=== PATIENT | female | born 1955 | race Caucasian/White ===

== ENCOUNTER 2019-11-19 08:50 | Inpatient (IN) | payer MEDICARE, MEDICAID ==
--- NOTE | 2019-11-18 16:15 | NUR ---
PT WAS A PHONE PREOP. COVID SCREENING QUESTIONS WERE ALL NEGATIVE. WILL PROCEED WITHOUT RAPID SWAB PER HEALTH CLAIMS EXAMINER MARINA SESAY.
[~2019-11-19] VITALS: Ht 160 cm; Wt 63.5 kg
[2019-11-19] VITALS (19 sets, daily range): BP systolic 123–160; BP diastolic 48–95
[~2019-11-19 08:50] MED LIST: AMIT25TA9 PO; LOSA50TA64 PO; SERT50TA10 PO; famotidine 20mg tablet PO ONE; ringers solution, lacted 1,000 ML IV SCH
[2019-11-19] MEDS ORDERED: CLINDAMYCIN/D5W 900mg/50ml 50 ML IV ONE (09:45)
[2019-11-19] MEDS ORDERED: phenylephrine inj 50 MG in normal saline 250ml IV soln 250 ML IV PRN (10:00)
[2019-11-19] MEDS ORDERED: nitroPRUSSIDE in NS 100 ML IV PRN (10:00)
[2019-11-19 10:39] LABS: BASOPHILS % (AUTO) 0.6 % (0-1); EOSINOPHILS # (AUTO) 0.2 X10'3 (0-0.9); EOSINOPHILS % (AUTO) 3.3 % (0-6); LYMPHOCYTES # (AUTO) 1.8 X10'3 (1.1-4.8); LYMPHOCYTES % (AUTO) 25.5 % (21-51); MEAN CORPUSCULAR HEMOGLOBIN 28.9 PG (27.0-31.0); MEAN CORPUSCULAR HGB CONC 33.5 g/dL (33.0-36.5); MEAN CORPUSCULAR VOLUME 86.4 FL (78-98); MEAN PLATELET VOLUME 6.5 FL (7.4-10.4); MONOCYTES # (AUTO) 0.3 X10'3 (0-0.9); NEUTROPHILS # (AUTO) 4.6 X10'3 (1.8-7.7); NEUTROPHILS % (AUTO) 65.6 % (42-75); PRE OP HEMATOCRIT 39.6 % (35.0-45.0); PRE OP HEMOGLOBIN 13.3 g/dL (12.0-16.0); PRE OP PLATELET COUNT 292 X10'3 (140-440); RED BLOOD COUNT 4.58 X10'6 (4.20-5.60); RED CELL DISTRIBUTION WIDTH 14.6 % (11.5-14.5)
[2019-11-19] MEDS ORDERED: nitroPRUSSIDE sod inj. 50 MG in dextrose 5%-water 250 ML IV PRN (10:40)
[2019-11-19 10:54] LABS: PRE OP PROTIME 10.4 SECONDS (9.0-12.0)
[2019-11-19 10:58] LABS: ALBUMIN 3.5 G/DL (3.4-5.0); ALBUMIN/GLOBULIN RATIO 0.9 (1.1-1.5); ALKALINE PHOSPHATASE 66 IU/L (46-116); BLOOD UREA NITROGEN 14 MG/DL (7-18); BUN/CREATININE RATIO 15.4 (6.6-38.0); CALCIUM 8.9 MG/DL (8.5-10.1); CHLORIDE 107 MMOL/L (99-107); CREATININE 0.91 MG/DL (0.40-0.90); PRE OP ALT 15 U/L (30-65); PRE OP ANION GAP 10 (8-16); PRE OP AST 16 U/L (10-37); PRE OP BILIRUB, TOTAL 0.3 MG/DL (0.0-1.0); PRE OP POTASSIUM 3.7 MMOL/L (3.4-5.1); PRE OP SODIUM 142 MMOL/L (135-145); TOTAL CARBON DIOXIDE 25.3 MMOL/L (24-32); TOTAL PROTEIN 7.6 G/DL (6.4-8.2); eGFR 62 ML/MIN
[2019-11-19 11:00] LABS: PRE OP GLUCOSE 93 MG/DL (70-104)
[2019-11-19] MEDS ORDERED: LIDOcaine 1% (10mg/ml) 2ml vial ONE (13:51)
[2019-11-19] MEDS ORDERED: heparin 10,000 units/1 ML INJ ONE (13:51)
[2019-11-19] MEDS ORDERED: ceFAZolin 1000mg inj ONE (13:52)
[2019-11-19] MEDS ORDERED: midazolam 2 mg/2 ml injection ONE (14:19)
[2019-11-19] MEDS ORDERED: fentaNYL/PF 50MCG/1 ML 2ML syringe ONE ×2 (14:19→15:21)
[2019-11-19] MEDS ORDERED: etomidate 2mg/ml inj. ONE ×2 (14:21→14:32)
[2019-11-19] MEDS ORDERED: rocuronium 10mg/ml inj IV ONE (14:21)
[2019-11-19] MEDS ORDERED: ringers solution, lacted 1,000 ML IV SCH (14:26)
[2019-11-19] MEDS ORDERED: morphine 2 MG/ML inj. syringe IV PRN (14:30)
[2019-11-19] MEDS ORDERED: phenylephrine inj 50 MG in normal saline 250ml IV soln 250 ML IV SCH (14:30)
[2019-11-19] MEDS ORDERED: morphine 4 MG/ML inj SYRINge IV PRN (14:30)
[2019-11-19] MEDS ORDERED: fentaNYL/PF 50MCG/1 ML 2ML syringe IV PRN ×2 (14:30)
[2019-11-19] MEDS ORDERED: labetalol 20mg/4ml (5mg/ml) syringe IV PRN (14:30)
[2019-11-19] MEDS ORDERED: ondansetron/PF 4mg/2ml inj IV PRN ×2 (14:30→17:05)
[2019-11-19] MEDS ORDERED: nitroPRUSSIDE sod inj. 50 MG in dextrose 5%-water 250 ML IV SCH (14:30)
[2019-11-19] MEDS ORDERED: hydrALAZINE 20mg/ml inj. IV PRN (14:30)
[2019-11-19] MEDS ORDERED: sevoflurane 250ml liquid IH ONE (14:32)
[2019-11-19] MEDS ORDERED: neostigmine methylsulfate 1 MG/ML 10ml vial ONE (14:32)
[2019-11-19] MEDS ORDERED: dexamethasone sod phosphate 10mg/ml inj ONE (14:32)
[2019-11-19] MEDS ORDERED: ondansetron/PF 4mg/2ml inj ONE (14:32)
[2019-11-19] MEDS ORDERED: heparin 1,000unit/ml 10ml vial 10 ML ONE (14:59)
[2019-11-19] MEDS ORDERED: glycopyrrolate 0.2mg/ml inj ONE (16:28)
[2019-11-19] MEDS ORDERED: labetalol 20mg/4ml (5mg/ml) syringe IV ONE (16:46)
--- NOTE | 2019-11-19 17:04 | NUR ---
RECEIVED VIA BED FROM OR ACCOMPANIED BY ANESTHESIOLOGIST DR ART, REPORT GIVEN. PT ALERT AND ORIENTED, STRATEGIC PLANNING ANALYST GOOD, NEURO CHECKS GOOD, SKIN PINK AND WARM WITH NO COMPLAINT OF PAIN AT THIS TIME. ART LINE R WRIST, 18 GAUGE PIV R WRIST PATENT AND RUNNING LR AT 100 ML/HR, TEGADERM AND STERI STRIP DRESSING R NECK CDI WITH ALFREDO DRAIN TO SUCTION. F/C DRAINING CLEAR YELLOW FLUID, SCDS ON. NO BP ON LUE PER DR LAGOS.
[2019-11-19] MEDS ORDERED: HYDROcodone/acetaminophen 5mg/325mg tablet PO PRN (17:05)
--- NOTE | 2019-11-19 18:14 | NUR ---
TRANSFERRED VIA BED FROM PACU ACCOMPANIED BY MYSELF, REPORT GIVEN. PT ALERT AND ORIENTED, CHEMIST STEROIDS GOOD, NEURO CHECKS GOOD, SKIN PINK AND WARM WITH NO COMPLAINT OF PAIN AT THIS TIME. 18 GAUGE PIV R WRIST PATENT AND RUNNING LR AT 100 ML/HR, TEGADERM AND STERI STRIP DRESSING R NECK CDI WITH ALFREDO DRAIN TO SUCTION. F/C DRAINING CLEAR YELLOW FLUID, SCDS ON. NO BP ON LUE PER DR LAGOS. LEFT IN CARE OF LIZETTE SESAY Addendum: 11/19/19 at 1825 by Lizette Khan RN Amended: Links added.
--- NOTE | 2019-11-19 18:20 | NUR ---
PT RECEIVED TO ROOM 2011, REPORT CALLED AHEAD BY LISS Cabello RN AND QUESTIONS ANSWERED. PT TRANSFERRED TO CICU MONITOR, AND ORIENTED TI THE ROOM AND CALL LIGHT. PLAN OF CARE DISCUSSED WITH HER. NEURO CHECK NORMAL WITHOUT ANY ISSUES, PT'S PAIN LEVEL AT 6/10, WILL GET ORDERED PAIN MEDICATION FOR HER. PIV INTACT, INFUSING WELL WITHOUT REDNESS OR SWELLING. DRESSING TO RIGHT SIDE OF NECK CLEAN, DRY, INTACT WITHOUT BRUISING OR HEMATOMA. ALFREDO DRAIN TO SUCTION WITH MINIMAL SANGUINOUS OUTPUT. WILL CONTINUE TO MONITOR.
[2019-11-19] MEDS: morphine 4 MG/ML inj SYRINge IV PRN ×2 (18:42→22:39)
[2019-11-19] MEDS: potassium CL 20mEq in D5-1/2NS 1,000 ML IV SCH (21:13)
[2019-11-20] VITALS (15 sets, daily range): BP systolic 100–140; BP diastolic 43–69
[2019-11-20] MEDS: morphine 4 MG/ML inj SYRINge IV PRN ×2 (02:36→06:31)
[2019-11-20] MEDS: potassium CL 20mEq in D5-1/2NS 1,000 ML IV SCH ×2 (04:42→09:04)
[2019-11-20 05:35] LABS: LYMPHOCYTES # (AUTO) 1.4 X10'3 (1.1-4.8); MEAN PLATELET VOLUME 6.8 FL (7.4-10.4)
[2019-11-20 05:37] LABS: BASOPHILS # (AUTO) 0.1 X10'3 (0-0.2); BASOPHILS % (AUTO) 0.7 % (0-1); EOSINOPHILS % (AUTO) 0 % (0-6); HEMATOCRIT 37.1 % (35.0-45.0); HEMOGLOBIN 12.4 g/dl (12.0-16.0); LYMPHOCYTES % (AUTO) 14.1 % (21-51); MEAN CORPUSCULAR HEMOGLOBIN 28.8 PG (27.0-31.0); MEAN CORPUSCULAR HGB CONC 33.3 g/dL (33.0-36.5); MEAN CORPUSCULAR VOLUME 86.4 FL (78-98); MONOCYTES # (AUTO) 0.8 X10'3 (0-0.9); MONOCYTES % (AUTO) 8.5 % (2-12); NEUTROPHILS # (AUTO) 7.4 X10'3 (1.8-7.7); NEUTROPHILS % (AUTO) 76.7 % (42-75); PLATELET COUNT 377 X10'3 (140-440); RED BLOOD COUNT 4.29 X10'6 (4.20-5.60); RED CELL DISTRIBUTION WIDTH 14.7 % (11.5-14.5); WHITE BLOOD COUNT 9.6 X10'3 (4.5-11.0)
[2019-11-20] MEDS ORDERED: vancomycin/NS 1 GM ADD-VANTAGE 250 ML IV SCH ×2 (06:00→08:00)
--- NOTE | 2019-11-20 06:12 | NUR ---
Problems reprioritized. Patient report given, questions answered & plan of care reviewed with GENTRY SESAY.
--- NOTE | 2019-11-20 06:26 | NUR ---
Patient in room CICU 2011. I have received report from SHAMA Bauer and had the opportunity to ask questions and assume patient care.
[2019-11-20] MEDS ORDERED: aspirin 81mg tab.chew PO ONE (09:15)
[2019-11-20] MEDS ORDERED: HYDR-4383 PO (14:26)
--- NOTE | 2019-11-20 15:00 | NUR ---
All discharge education provided including new medication. Pt states she will take prescription to preferred pharmacy. Pt dressed self and is alert, oriented and stable for discharge. Pt has scheduled appt with Dr. Mazariegos next monday at 1130. Monitor and IV removed. Pt wheeled down to lobby by PCT to be monitored by aides in lobby while waiting for medi transport
[2019-11-20] MEDS ORDERED: amitriptyline 25mg tablet PO SCH (21:00)
[2019-11-21] MEDS ORDERED: sertraline 50mg tablet PO SCH (08:00)
[2019-11-21] MEDS ORDERED: losartan 50mg tablet PO SCH (08:00)
== END 2019-11-20 15:30 | disposition home or self-care (01) | DRG 39 ==
LOC: UNDOADMIN 08:50 → PAS IN 08:50 → EDSTATUS 14:00 → PAS IN 17:04 → CICU 2S 18:15
PROVIDERS: ADMIT Surgery; ATTEND Surgery
PROC: 03UK0KZ Supplement Right Internal Carotid Artery with Nonautologous Tissue Substitute, Open Approach (ICD-10-PCS; 2019-11-19)
PROC: 4A10X4Z Monitoring of Central Nervous Electrical Activity, External Approach (ICD-10-PCS; 2019-11-19)
PROC: 03CK0ZZ Extirpation of Matter from Right Internal Carotid Artery, Open Approach (ICD-10-PCS; principal; 2019-11-19 14:32)
DX: I65.21 Occlusion and stenosis of right carotid artery (principal); Z88.0 Allergy status to penicillin; Z88.5 Allergy status to narcotic agent
CPT/HCPCS: 36415; 71045; 80053; 85025; 85610; 85730; 86885; 86900; 86901; 87081; 95813; 95816; A4618; A6258; A7000; C1758; C1768; C1887; G0378; J0690; J1100; J1644; J2001; J2250; J2270; J2370; J2405; J2710; J3010; J3370; J3480; J3490; J7040; J7050; J7060; J7120